=== PATIENT | male | born 1970 | race Caucasian/White ===

== ENCOUNTER 2018-10-08 02:23 | Emergency (ER) | payer OTHER ==
[~2018-10-08] VITALS: Ht 188 cm; Wt 93.0 kg
[~2018-10-08 02:23] MED LIST: LISINOPRIL40 MG; ZOCOR 20 MG TAB20 M1
[2018-10-08] MEDS ORDERED: NORCO 7.5-3251 EACH PO (05:09)
[2018-10-08] MEDS ORDERED: PREDNISONE50 MG PO (05:09)
[2018-10-08 05:28] VITALS: BP 123/76
== END 2018-10-08 05:28 | disposition home or self-care (01) ==
LOC: M.ERS 02:23
DX: J40 Bronchitis, not specified as acute or chronic (principal); R07.81 Pleurodynia; I10 Essential (primary) hypertension; E78.00 Pure hypercholesterolemia, unspecified; Z90.49 Acquired absence of other specified parts of digestive tract; Z88.8 Allergy status to other drugs, medicaments and biological substances